=== PATIENT | male | born 1955 | race Caucasian/White ===

== ENCOUNTER → 2019-09-19 | Outpatient (CLI) | payer OTHER | LOC: M PLARAD 12:25 | PROVIDERS: ATTEND Physician Assistant | DX: Z53.9 Procedure and treatment not carried out, unspecified reason (principal) ==

== ENCOUNTER → 2019-10-03 | Outpatient (CLI) | payer OTHER ==
--- NOTE | 2019-10-04 09:13 | REP ---
PET/CT: HISTORY: Diagnosing lung mass. COMPARISONS: Report of outside prior chest CT describes two spiculated nodules associated with a scar in the right upper lobe, measuring 1.2 x 1.6 cm and 1.1 x 1.2 cm. TECHNIQUE: 1 hour 9 minutes following the intravenous injection of a 8.02 mCi dose of F-18 FDG, three-dimensional PET scintigraphy is acquired from the skull base to the proximal thighs. Triplanar noncontrast CT scanning is acquired through the same anatomic range for attenuation correction, and image registration with scan parameters optimized to minimize radiation exposure to the patient. PET scintigraphy and CT datasets were fused and displayed on a workstation with multiplanar and projection display capability. PET/CT FINDINGS: Head and neck soft tissues are unremarkable. There are two adjacent right upper lobe nodular densities both of which are hypermetabolic, one directly above the other. The maximum standard uptake value in the more superior of the two is 7.08 and that in the more inferior smaller lesion 4.30. These nearly abut one another on coronal and sagittal re-formation images. The larger measures 1.3 x 2.[address] and the more inferior component measures 0.8 x 1. 4 cm. No other abnormal pulmonary parenchymal hypermetabolic uptake is seen. There is very mild increased uptake in a pretracheal lymph node, maximum SUV value 3.3. Similar low level and minimally hypermetabolic uptake is seen in small AP window region lymph nodes and a small precarinal lymph node. There is hypermetabolic uptake in a subcarinal lymph node to the right of midline where maximum standard uptake value is 4.06. This flores uptake is of uncertain significance. No abnormal adrenal hypermetabolic uptake is seen. In the abdomen and pelvis, normal hepatic, splenic, gastrointestinal, and genitourinary FDG accumulation is seen. No abnormal abdominal or pelvic hypermetabolic uptake. IMPRESSION: The adjacent nodular opacities in the right upper lobe are hypermetabolic. There is minimally hypermetabolic uptake in scattered mediastinal lymph nodes of uncertain significance. No other abnormal hypermetabolic uptake. Electronically Signed by Paco Kam MD 10/04/2019 06:15 P
== END ==
LOC: M PLARAD 08:57
PROVIDERS: ATTEND Physician Assistant
DX: R91.8 Other nonspecific abnormal finding of lung field (principal)
CPT/HCPCS: 78815; A9552

== ENCOUNTER → 2020-10-02 | Outpatient (CLI) | payer OTHER ==
--- NOTE | 2020-10-02 17:57 | REP ---
INDICATION: ARTHRITIS OF RIGHT KNEE. COMPARISON: None. TECHNIQUE: Multiple sequences obtained in the axial, coronal and sagittal planes. FINDINGS: Menisci: There is a complex tear of the body and posterior horn of the medial meniscus. I do not see a tear of the lateral meniscus. Cruciate ligaments: Intact. Collateral ligaments: Intact. Extensor mechanism/patellar retinacula: Intact. Cartilage: There is mild global chondromalacia which is more moderate in severity along the central aspect of the medial femoral condyle and tibial plateau. Bone marrow: Normal signal, no edema or occult fracture. Joint fluid: There is a small joint effusion. Popliteal region: No cyst. IMPRESSION: Complex tear body and posterior horn medial meniscus. 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 Small joint effusion. <Electronically signed by Lavell Aguirre > 10/02/20 0133
--- NOTE | 2020-10-02 21:16 | REPVR ---
PROCEDURE INFORMATION: Exam: MR Cervical Spine Without Contrast Exam date and time: 10/02/2020 5:23 PM Age: 64 years old Clinical indication: Neck pain; Additional info: Spondylolisthesis of cervical region TECHNIQUE: Imaging protocol: Multiplanar magnetic resonance images of the cervical spine without contrast. COMPARISON: PT PET/CT Skull/mid thigh 10/03/2019 10:36 AM FINDINGS: Vertebrae: There is mild reversal the normal cervical lordosis. There is minimal anterior spondylolisthesis of C4 on C5. There is no significant stenosis in the cervical spine. There is diffuse disc space narrowing and endplate degeneration as well as degeneration of the uncovertebral and facet joints. Spinal cord: No definite abnormal signal in the cervical spinal cord. There is no evidence of spinal cord compression. C2-C3: No significant spinal stenosis. Mild narrowing of the right neural foramen. C3-C4: No significant spinal stenosis. Moderate narrowing of the left neural foramen. C4-C5: No significant spinal stenosis. Mild left neural foraminal narrowing. C5-C6: The canal is narrowest at the C5-C6 level where it measures 1.1 cm AP. Mild right and moderate left neural foraminal narrowing. C6-C7: No significant spinal stenosis. Mild right and moderate left neural foraminal narrowing. C7-T1: No significant spinal canal stenosis or neural foraminal narrowing. Vertebral arteries: Expected flow voids in the vertebral arteries. Soft tissues: Unremarkable. IMPRESSION: There is diffuse degeneration in the cervical spine. Evaluation is limited due to patient motion which limits evaluation of the neural foramen. There does not appear to be spinal canal stenosis or cord compression. Electronically signed by: Larissa Barajas On 10/02/2020 21:16:14 PM
--- NOTE | 2020-10-02 21:25 | REPVR ---
PROCEDURE INFORMATION: Exam: MR Lumbar Spine Without Contrast. Exam date and time: 10/02/2020 5:42 PM Age: 64 years old Clinical indication: Pain; Sciatica; Bilateral; Patient HX: Sana; Additional info: Sacralization of lumbar vertbra TECHNIQUE: Imaging protocol: Multiplanar magnetic resonance images of the lumbar spine without intravenous contrast. COMPARISON: No relevant prior studies available. FINDINGS: Vertebrae: Normal alignment. There is a probable transitional vertebral segment with a rudimentary disc space at the S1-S2 level. The last normal appearing disc space will be labeled L5-S1. There is no compression fracture in the lumbar spine. Spinal cord: The conus medullaris is normal appearance at the L1-L2 level. L1-L2: No significant disc disease. No significant spinal canal stenosis. No neural foraminal stenosis. L2-L3: No significant disc disease. No significant spinal canal stenosis. No neural foraminal stenosis. L3-L4: No significant disc disease. No significant spinal canal stenosis. No neural foraminal stenosis. L4-L5: No significant disc disease. No significant spinal canal stenosis. No neural foraminal stenosis. L5-S1: There is degeneration of both facet joints and both neural foramen appear to be moderately narrowed which may affect the L5 nerve roots. There is further narrowing of the proximal right neural foramen by small synovial cyst series 701, image 1 frame 9, series 401, image 1 frame 11. There is mild spinal canal stenosis. A diffusely bulging annulus mildly narrows both lateral recesses which could affect the exiting S1 nerve roots. There is also ligamentum flavum hypertrophy. Soft tissues: Unremarkable. IMPRESSION: No definite evidence of neural compromise however there is mild spinal canal stenosis at the L5-S1 level with narrowing of the lateral recesses due to diffusely bulging annulus which could potentially affect the exiting S1 nerve roots. Additionally there is moderate narrowing of both neural foramen which could affect the L5 nerve roots greater on right than left. Electronically signed by: Larissa Barajas On 10/02/2020 21:24:32 PM
== END ==
LOC: M RAD 14:24
PROVIDERS: ATTEND Physician Assistant
DX: M17.11 Unilateral primary osteoarthritis, right knee (principal); M47.816 Spondylosis without myelopathy or radiculopathy, lumbar region; Q76.49 Other congenital malformations of spine, not associated with scoliosis; M48.061 Spinal stenosis, lumbar region without neurogenic claudication; M94.261 Chondromalacia, right knee; S83.231A Complex tear of medial meniscus, current injury, right knee, initial encounter; X58.XXXA Exposure to other specified factors, initial encounter; Y92.9 Unspecified place or not applicable; M43.12 Spondylolisthesis, cervical region

== ENCOUNTER → 2020-11-21 | Outpatient (CLI) | payer OTHER ==
--- NOTE | 2020-11-21 12:28 | REP ---
INDICATION: SPONDYLOSIS W/O MYELOPATHY OR RADICULOPATHY, CERVICAL REGION. COMPARISON: None. TECHNIQUE: AP, lateral, flexion/extension, and open-mouth views of the cervical spine. FINDINGS: Straightening of normal lordosis is nonspecific. Advanced multilevel degenerative changes include osteophytosis, endplate sclerosis, disc space narrowing and facet hypertrophy. No obvious acute fracture/compression injury or subluxation. IMPRESSION: Advanced multilevel degenerative spondylosis consistent with recent prior MRI study <Electronically signed by Goran Dobbins > 11/21/20 0031
== END ==
LOC: M RAD 11:35
PROVIDERS: ATTEND Neurological Surgery
DX: M47.812 Spondylosis without myelopathy or radiculopathy, cervical region (principal)

== ENCOUNTER 2023-06-28 12:58 | Day surgery (SDC) | payer MEDICARE ==
[~2023-06-28] VITALS: Ht 170.2 cm; Wt 63.3 kg
[~2023-06-28 12:58] MED LIST: ALEV220T22 PO; IRON27TA2 PO; LYRI75CA PO; NS 1,000 ML IV ONE; STIO1AER INH
[2023-06-28] MEDS ORDERED: propofoL 200 MG/20 ML VIAL As Ordered ONE (15:04)
[2023-06-28] MEDS ORDERED: LIDOCAINE 2% 100MG/5ML SDV (FOR ANES.) As Ordered ONE (15:04)
[2023-06-28] MEDS ORDERED: fentaNYL 100 MCG/2 ML INJECTION As Ordered ONE (15:04)
[2023-06-28 15:53] VITALS: BP 182/76; TEMP 98.2; O2SAT 97
== END 2023-06-28 15:55 | disposition home or self-care (01) ==
LOC: M OPP 12:58
PROVIDERS: ATTEND Internal Medicine Gastroenterology
DX: C15.9 Malignant neoplasm of esophagus, unspecified (principal); K22.89 Other specified disease of esophagus; K29.70 Gastritis, unspecified, without bleeding; R93.3 Abnormal findings on diagnostic imaging of other parts of digestive tract; F17.200 Nicotine dependence, unspecified, uncomplicated; Z79.1 Long term (current) use of non-steroidal anti-inflammatories (NSAID); Z79.51 Long term (current) use of inhaled steroids; Z79.899 Other long term (current) drug therapy
CPT/HCPCS: 43239; 88305; J3010

== ENCOUNTER → 2023-08-23 | Outpatient (CLI) | payer MEDICARE ==
[~2023-08-23] MED LIST changes: -NS 1,000 ML IV ONE
== END ==
LOC: M PLARAD 10:36
PROVIDERS: ATTEND Thoracic Surgery (Cardiothoracic Vascular Surgery)
DX: C15.4 Malignant neoplasm of middle third of esophagus (principal); R59.0 Localized enlarged lymph nodes
CPT/HCPCS: 78815; A9552

== ENCOUNTER → 2023-09-22 | Outpatient (CLI) | payer MEDICARE ==
[~2023-09-22] MED LIST changes: +COMBAER6 INH; +PROT1TAB2 PO
== END ==
LOC: M ONCR 09:54
PROVIDERS: ATTEND General Practice
DX: C15.4 Malignant neoplasm of middle third of esophagus (principal); D50.9 Iron deficiency anemia, unspecified; Z71.2 Person consulting for explanation of examination or test findings; Z85.118 Personal history of other malignant neoplasm of bronchus and lung; Z87.891 Personal history of nicotine dependence; Z79.899 Other long term (current) drug therapy; Z90.5 Acquired absence of kidney

== ENCOUNTER → 2023-10-08 | Outpatient (CLI) | payer MEDICARE ==
[~2023-10-08] MED LIST changes: +ASPI-655 PO; +PANT40TA29
== END ==
LOC: M ONCR 10:31
PROVIDERS: ATTEND General Practice
DX: C15.4 Malignant neoplasm of middle third of esophagus (principal); C34.11 Malignant neoplasm of upper lobe, right bronchus or lung; F17.210 Nicotine dependence, cigarettes, uncomplicated; Z71.2 Person consulting for explanation of examination or test findings; Z79.899 Other long term (current) drug therapy
CPT/HCPCS: 99406; G0463

== ENCOUNTER 2023-10-11 15:49 | Outpatient (RCR) | payer MEDICARE | END 2023-10-20 | LOC: M ONCR 15:49 | PROVIDERS: ATTEND General Practice | DX: Z51.0 Encounter for antineoplastic radiation therapy (principal); C15.4 Malignant neoplasm of middle third of esophagus ==

== ENCOUNTER → 2023-10-11 | Outpatient (REF) | payer MEDICARE ==
[2023-10-11 16:16] LABS: FERRITIN 15.2 NG/ML (10.5-307.3)
== END ==
LOC: M LAB REF 14:41
PROVIDERS: ATTEND Internal Medicine Medical Oncology
DX: C34.91 Malignant neoplasm of unspecified part of right bronchus or lung (principal); D50.9 Iron deficiency anemia, unspecified

== ENCOUNTER → 2023-10-18 | Outpatient (CLI) | payer MEDICARE | LOC: M IRPRO 09:32 | PROVIDERS: ATTEND Specialist | DX: C15.4 Malignant neoplasm of middle third of esophagus (principal) ==

== ENCOUNTER → 2023-10-19 | Outpatient (CLI) | payer MEDICARE | LOC: M ONCM 10:27 | PROVIDERS: ATTEND Dietitian, Registered | DX: C15.4 Malignant neoplasm of middle third of esophagus (principal); C34.90 Malignant neoplasm of unspecified part of unspecified bronchus or lung; Z68.20 Body mass index [BMI] 20.0-20.9, adult; Z71.3 Dietary counseling and surveillance; Z87.891 Personal history of nicotine dependence; Z90.2 Acquired absence of lung [part of] ==

== ENCOUNTER → 2023-11-18 | Outpatient (RCR) | payer MEDICARE ==
[~2023-11-18] MED LIST changes: +K-PHTAB2 PO; +LIDO15SO PO; +MAGN400C PO
== END ==
LOC: M ONCR 10-27 10:12
PROVIDERS: ATTEND General Practice
DX: Z51.0 Encounter for antineoplastic radiation therapy (principal); C15.4 Malignant neoplasm of middle third of esophagus

== ENCOUNTER 2023-12-06 10:21 | Outpatient (RCR) | payer MEDICARE ==
[~2023-12-06 10:21] MED LIST changes: +CARA1TAB6 PO; +CEPH25SS PO; +CEPH500C PO; -LIDO15SO PO; +LIDO15SO8 PO; +ONDA4TAB6 PO; +OXYC1SOL3 PO
== END 2023-12-19 ==
LOC: M ONCR 10:21
PROVIDERS: ATTEND General Practice
DX: Z51.0 Encounter for antineoplastic radiation therapy (principal); C15.4 Malignant neoplasm of middle third of esophagus

== ENCOUNTER → 2024-01-12 | Outpatient (CLI) | payer MEDICARE ==
[~2024-01-12] MED LIST changes: +B-12100010 PO; +CHOL125C5 PO; +PHOS1TAB3 PO; +VITA100T59 PO
== END ==
LOC: M RAD 13:25
PROVIDERS: ATTEND Internal Medicine Hematology & Oncology
DX: I73.9 Peripheral vascular disease, unspecified (principal); C15.9 Malignant neoplasm of esophagus, unspecified; M79.661 Pain in right lower leg; M79.662 Pain in left lower leg

== ENCOUNTER → 2024-02-15 | Outpatient (CLI) | payer MEDICARE | LOC: M PLARAD 10:51 | PROVIDERS: ATTEND General Practice | DX: C15.4 Malignant neoplasm of middle third of esophagus (principal) | CPT/HCPCS: 78815; A9552 ==

== ENCOUNTER → 2024-03-07 | Outpatient (CLI) | payer MEDICARE ==
[~2024-03-07] MED LIST changes: +BUDE10.7; +ONDA-282 PO; -ONDA4TAB6 PO
== END ==
LOC: M ONCR 10:20
PROVIDERS: ATTEND General Practice
DX: C15.4 Malignant neoplasm of middle third of esophagus (principal); R59.9 Enlarged lymph nodes, unspecified; Z85.118 Personal history of other malignant neoplasm of bronchus and lung; Z71.2 Person consulting for explanation of examination or test findings; Z92.21 Personal history of antineoplastic chemotherapy; Z92.3 Personal history of irradiation; Z79.82 Long term (current) use of aspirin; Z79.899 Other long term (current) drug therapy; Z90.5 Acquired absence of kidney

== ENCOUNTER → 2024-06-02 | Outpatient (CLI) | payer MEDICARE ==
[~2024-06-02] MED LIST changes: +GASTROGRAFIN SOLUTION 30ML As Ordered ONE; +ISOVUE-370 76% 100ML VIAL As Ordered ONE
== END ==
LOC: M RAD 09:15
PROVIDERS: ATTEND General Practice
DX: C15.4 Malignant neoplasm of middle third of esophagus (principal)
CPT/HCPCS: 71260; 74177; Q9963; Q9967

== ENCOUNTER → 2024-06-07 | Outpatient (CLI) | payer MEDICARE ==
[~2024-06-07] MED LIST changes: -GASTROGRAFIN SOLUTION 30ML As Ordered ONE; -ISOVUE-370 76% 100ML VIAL As Ordered ONE
== END ==
LOC: M ONCR 09:54
PROVIDERS: ATTEND General Practice
DX: C15.4 Malignant neoplasm of middle third of esophagus (principal); R91.1 Solitary pulmonary nodule; F17.210 Nicotine dependence, cigarettes, uncomplicated; Z85.118 Personal history of other malignant neoplasm of bronchus and lung; Z90.2 Acquired absence of lung [part of]; Z79.51 Long term (current) use of inhaled steroids; Z79.82 Long term (current) use of aspirin; Z79.899 Other long term (current) drug therapy; Z92.21 Personal history of antineoplastic chemotherapy; Z92.3 Personal history of irradiation

== ENCOUNTER → 2024-08-22 | Outpatient (CLI) | payer MEDICARE, MEDICAID ==
[2024-08-22 14:30] LABS: BASO % 0.3 % (0.0-1.0); EOS # 0.2 10^3/uL (0.0-0.5); EOS % 2.5 % (0.0-3.0); HEMATOCRIT 34.6 % (42.0-52.0); HEMOGLOBIN 11.6 g/dl (13.5-17.5); LYMPH # 0.7 10^3/uL (1.5-5.0); LYMPH % 11.6 % (24.0-44.0); MEAN CORPUSCULAR HEMOGLOBIN 32.9 pg (27.0-33.0); MEAN CORPUSCULAR HGB CONC 33.5 g/dl (32.0-36.5); MONO # 0.6 10^3/uL (0.0-0.8); NEUTROPHILS # 4.7 10^3/uL (1.5-8.5); NEUTROPHILS % 76.4 % (36.0-66.0); PLATELET COUNT, AUTOMATED 259 10^3/uL (150-450); RED BLOOD COUNT 3.53 10^6/uL (4.30-6.10); WHITE BLOOD COUNT 6.1 10^3/uL (4.0-10.0)
[2024-08-22 15:03] LABS: ALBUMIN 3.6 G/DL (3.2-5.2); ALKALINE PHOSPHATASE 60 U/L (40-129); ALT/SGPT 14 U/L (7.0-40); AST/SGOT < 8 U/L (<34); BILIRUBIN,TOTAL 0.5 MG/DL (0.3-1.2); BLOOD UREA NITROGEN 11 MG/DL (9-23); CALCIUM LEVEL 9.1 MG/DL (8.3-10.6); CARBON DIOXIDE LEVEL 26 MMOL/L (20-31); CHLORIDE LEVEL 98 MMOL/L (98-107); CREATININE FOR GFR 0.68 MG/DL (0.70-1.30); GLOMERULAR FILTRATION RATE > 60.0 (>49); GLUCOSE, FASTING 100 MG/DL (74-106); IRON (FE) 46 UG/DL (65-175); PERCENT SATURATION 18.5 % (19.7-50.0); POTASSIUM SERUM 4.4 MMOL/L (3.5-5.1); SODIUM LEVEL 131 MMOL/L (136-145); TOTAL IRON BINDING CAPACITY 248 UG/DL (250-425); TOTAL PROTEIN 6.8 G/DL (5.7-8.2)
[2024-08-22 15:05] LABS: FERRITIN 292.7 NG/ML (10.5-307.3)
[2024-08-22 16:31] LABS: PHOSPHORUS LEVEL 2.9 MG/DL (2.4-5.1)
== END ==
LOC: M LAB 14:10
PROVIDERS: ATTEND Specialist
DX: D50.9 Iron deficiency anemia, unspecified (principal); C15.9 Malignant neoplasm of esophagus, unspecified

== ENCOUNTER → 2024-08-30 | Outpatient (CLI) | payer MEDICARE ==
[~2024-08-30] MED LIST changes: +ISOVUE-370 76% 100ML VIAL As Ordered ONE; +TRIA1OI TOP
== END ==
LOC: M RAD 09:51
PROVIDERS: ATTEND General Practice
DX: C15.4 Malignant neoplasm of middle third of esophagus (principal)
CPT/HCPCS: 71260; Q9967

== ENCOUNTER → 2024-09-06 | Outpatient (CLI) | payer MEDICARE, MEDICAID ==
[~2024-09-06] MED LIST changes: -ISOVUE-370 76% 100ML VIAL As Ordered ONE
== END ==
LOC: M ONCR 10:17
PROVIDERS: ATTEND General Practice
DX: C15.4 Malignant neoplasm of middle third of esophagus (principal); C34.11 Malignant neoplasm of upper lobe, right bronchus or lung; F17.210 Nicotine dependence, cigarettes, uncomplicated; Z92.21 Personal history of antineoplastic chemotherapy; Z92.3 Personal history of irradiation; Z79.51 Long term (current) use of inhaled steroids; Z79.82 Long term (current) use of aspirin; Z79.899 Other long term (current) drug therapy; Z90.2 Acquired absence of lung [part of]

== ENCOUNTER → 2024-12-07 | Outpatient (CLI) | payer MEDICARE ==
[~2024-12-07] MED LIST changes: +ISOVUE-370 76% 100ML VIAL ONE
== END ==
LOC: M PLAIMG 13:38
PROVIDERS: ATTEND Internal Medicine Medical Oncology
DX: C15.9 Malignant neoplasm of esophagus, unspecified (principal); K59.00 Constipation, unspecified; J84.9 Interstitial pulmonary disease, unspecified; I31.39 Other pericardial effusion (noninflammatory)
CPT/HCPCS: 71260; 74177; Q9967

== ENCOUNTER → 2025-04-02 | Outpatient (CLI) | payer MEDICARE, MEDICAID ==
[~2025-04-02] MED LIST changes: +AMLO1TAB24 PO; +BENA25CA4 PO; +CLOB-25 TOP; -ISOVUE-370 76% 100ML VIAL ONE; +SOD250TA2
== END ==
LOC: M RAD 13:51
PROVIDERS: ATTEND Internal Medicine Medical Oncology
DX: I31.39 Other pericardial effusion (noninflammatory) (principal); I70.202 Unspecified atherosclerosis of native arteries of extremities, left leg; C15.9 Malignant neoplasm of esophagus, unspecified

== ENCOUNTER → 2025-04-13 | Outpatient (CLI) | payer MEDICARE, MEDICAID ==
[~2025-04-13] MED LIST changes: +FAMO20TA PO; +IPRA0.00 NEB; +LOSA50TA28 PO
== END ==
LOC: M ONCR 09:27
PROVIDERS: ATTEND General Practice
DX: Z08 Encounter for follow-up examination after completed treatment for malignant neoplasm (principal); Z85.01 Personal history of malignant neoplasm of esophagus; Z85.118 Personal history of other malignant neoplasm of bronchus and lung; I10 Essential (primary) hypertension; I70.202 Unspecified atherosclerosis of native arteries of extremities, left leg; J44.9 Chronic obstructive pulmonary disease, unspecified; F17.218 Nicotine dependence, cigarettes, with other nicotine-induced disorders; Z92.21 Personal history of antineoplastic chemotherapy; Z92.3 Personal history of irradiation; Z79.51 Long term (current) use of inhaled steroids; Z79.82 Long term (current) use of aspirin; Z79.899 Other long term (current) drug therapy

== ENCOUNTER → 2025-05-28 | Outpatient (CLI) | payer MEDICARE, MEDICAID ==
[~2025-05-28] MED LIST changes: -ASPI-655 PO; +ASPI-737 PO
== END ==
LOC: M ONCR 10:25
PROVIDERS: ATTEND General Practice
DX: D53.1 Other megaloblastic anemias, not elsewhere classified (principal); D50.9 Iron deficiency anemia, unspecified

== ENCOUNTER → 2025-06-04 | Outpatient (CLI) | payer MEDICARE, MEDICAID ==
[~2025-06-04] MED LIST changes: +MULT400T10; +PRED50TA57 PO
[2025-06-04 10:44] LABS: BASO # 0.0 10^3/uL (0.0-0.2); BASO % 0.5 % (0.0-1.0); EOS # 0.3 10^3/uL (0.0-0.5); EOS % 5.7 % (0.0-3.0); LYMPH # 0.5 10^3/uL (1.5-5.0); LYMPH % 8.3 % (24.0-44.0); MONO # 0.4 10^3/uL (0.0-0.8); MONO % 7.6 % (2.0-8.0); NEUTROPHILS # 4.4 10^3/uL (1.5-8.5); NEUTROPHILS % 77.7 % (36.0-66.0); PLATELET COUNT, AUTOMATED 294 10^3/uL (150-450)
== END ==
LOC: M ONCR 10:39
PROVIDERS: ATTEND General Practice
DX: C15.4 Malignant neoplasm of middle third of esophagus (principal); D64.9 Anemia, unspecified
CPT/HCPCS: 36415; 85025; G0463

== ENCOUNTER → 2025-07-05 | Outpatient (CLI) | payer MEDICARE, MEDICAID ==
[~2025-07-05] MED LIST changes: +E-Z-PAQUE 96% w/w SUSP 176 GM BTL As Ordered ONE; +FURO20TA2 PO
== END ==
LOC: M RAD 09:05
PROVIDERS: ATTEND Internal Medicine Gastroenterology
DX: D50.9 Iron deficiency anemia, unspecified (principal); R63.4 Abnormal weight loss; C15.9 Malignant neoplasm of esophagus, unspecified; R13.10 Dysphagia, unspecified

== ENCOUNTER → 2025-08-07 | Outpatient (CLI) | payer MEDICARE, MEDICAID ==
[~2025-08-07] MED LIST changes: -E-Z-PAQUE 96% w/w SUSP 176 GM BTL As Ordered ONE; +LIDOCAINE 1% MDV 20 ML VIAL SC SCH; +METH-1164 PO
[2025-08-07 12:25] VITALS: BP 175/81; TEMP 97.7; O2SAT 100
[2025-08-07 12:49] LABS: BASO # 0.0 10^3/uL (0.0-0.2); BASO % 0.5 % (0.0-1.0); EOS # 0.4 10^3/uL (0.0-0.5); EOS % 6.8 % (0.0-3.0); LYMPH # 0.3 10^3/uL (1.5-5.0); LYMPH % 6.0 % (24.0-44.0); MONO # 0.5 10^3/uL (0.0-0.8); MONO % 9.5 % (2.0-8.0); NEUTROPHILS # 4.4 10^3/uL (1.5-8.5); NEUTROPHILS % 76.8 % (36.0-66.0); PLATELET COUNT, AUTOMATED 334 10^3/uL (150-450)
== END ==
LOC: M IRPRO 12:13
PROVIDERS: ATTEND Internal Medicine Medical Oncology
DX: D50.9 Iron deficiency anemia, unspecified (principal)

== ENCOUNTER → 2025-08-29 | Outpatient (POV) | payer MEDICARE, MEDICAID ==
[~2025-08-29] MED LIST changes: -LIDOCAINE 1% MDV 20 ML VIAL SC SCH
== END ==
LOC: M IRPOV 13:30
PROVIDERS: ATTEND Radiology Diagnostic Radiology
DX: K55.20 Angiodysplasia of colon without hemorrhage (principal); E11.51 Type 2 diabetes mellitus with diabetic peripheral angiopathy without gangrene; F17.210 Nicotine dependence, cigarettes, uncomplicated; Z79.899 Other long term (current) drug therapy; D64.89 Other specified anemias; R25.2 Cramp and spasm

== ENCOUNTER → 2025-09-05 | Outpatient (CLI) | payer MEDICARE, MEDICAID ==
[~2025-09-05] MED LIST changes: +ISOVUE-370 76% 100 ML VIAL As Ordered ONE
== END ==
LOC: M RAD 08:23
PROVIDERS: ATTEND General Practice
DX: C15.4 Malignant neoplasm of middle third of esophagus (principal)
CPT/HCPCS: 71260; 82565; Q9967

== ENCOUNTER → 2025-09-10 | Outpatient (CLI) | payer MEDICARE, MEDICAID ==
[~2025-09-10] MED LIST changes: -ISOVUE-370 76% 100 ML VIAL As Ordered ONE
== END ==
LOC: M ONCR 10:39
PROVIDERS: ATTEND General Practice
DX: C15.4 Malignant neoplasm of middle third of esophagus (principal); Z92.21 Personal history of antineoplastic chemotherapy; Z92.3 Personal history of irradiation; Z79.51 Long term (current) use of inhaled steroids; Z79.82 Long term (current) use of aspirin; Z79.899 Other long term (current) drug therapy